=== PATIENT | male | born 1960 | race Caucasian/White ===

== ENCOUNTER → 2023-07-02 12:00 | Outpatient (REF) | payer OTHER, SELFPAY ==
--- NOTE | 2023-06-29 12:46 | PN.DIAED02 ---
Referral
DSME Class Series Code: [id number]
Referred For: Diabetes Self-Management Training, Medical Nutrition Therapy, Self-Blood Glucose Monitoring, Long-Term Complication Instruction, Accute Complication Instruction, Medication management, Insulin Instruction, Disease Management
PHI Release Authorization Form Signed: Yes
Patient Problems:
Current Active Problems
Problem Status Onset
Type 2 diabetes mellitus with hyperglycemia ~06/11/19
Demographic
(1) Type 2 diabetes mellitus with hyperglycemia
Status: Acute Code(s): E11.65 - Type 2 diabetes mellitus with hyperglycemia
Patient's primary language-: [place]
Education: Advanced college degree
Occupation: Retired
- Social
Primary Support Person: Self
Primary Care Takers: Self & spouse
Living Arrangements: Self & spouse
- Learning Methods
Preferred Method: Lecture/audio
Barriers to Learning: None
Glycemic Control
- Blood Glucose Monitoring Assessment
Blood glucose monitoring at home: Yes
Monitor Brands: [employer] (Contour Next EZ)
Frequency: 2x per day
Patient uses Alternate Site Testing: No
Patient instructed on Use and Limitation: No
- Blood Glucose Monitoring Results
Source: self-report
- Hemoglobin A1c
Date: 01/05/23
A1C Percentage (%): 10.7
Medical History of Diabetes
Family Diabetes History: Child(olga) (Son with T1DM), Mother (T2DM)
Previous Diabetes Education: No
Previous visit with Dietitian: No
Complications/Comorbidity/Specialist: Diabetic Neuropathy, Hypertension, Hyperlipidemia, Retinopathy (Diabetic )
Current Home Medication
- Insulin Management
Patient adjusts own insulin dosages: No
Patient has access to glucagon: Yes
- Insulin Types
Lantus
Insulin Injection Site: Abdomen
Administration Type: SoloSTAR
Needle Length: ' (4 mm)
Needle Gauge: 32
Connection Type: Screw on
Novolog
Administration Type: FlexPen
Needle Length: 5/32' (4 mm)
Needle Gauge: 32
Connection Type: Screw on
Measures
- Anthropometrics
Height: 5 ft 10 in
Actual Weight: 114.305 kg
- Blood Pressure / Pulse
Blood pressure: 159/66
Pulse: 75
- Diabetes Management
Medical Management for Diabetes: Complete physical exam (03/11/2023), Dental exam (06/03/2023), Dilated eye exam (05/08/2023), Flu Vaccination (03/2023), Pneumonia vaccination (01/2022)
Self-Care
- Tobacco Usage
Do you now, or have you ever smoked?: Never smoked
- Alcohol & Drugs Usage
Amount/day: < 1 drink per day
Uses Recreational Drugs: No
- Meals & Dining
Meals & Dining: Patient skips meals: Yes, Food Intolerance / Allergy: No, Cultural / Episcopal Dietary Needs: No
Primary Food Installation Coordinator: Self & Spouse
Primary Supervisor Gelatin Plant: Self & Spouse
Dining Out Frequency: 1-3x per week
- Physical Activity
Physical Limitation: No
Patient participates in physical Activity: Yes
Activity Types: walking
Duration: 31-40 minutes
Frequency: 3-5x per week
Intensity: Easy
- Self Foot-Care
Foot Problems: Neuropathy
Performs Self Foot-Exam: Yes
Frequency: Daily
- Patient-Self Assessment
Diabetes Knowledge: Good
Feelings About Diabetes: Acceptance
General Health: Good
Importance of Health: Somewhat
Stress Level: Low
Diabetes Interferes With:: Sexual relations, Finances
Barriers to Diabetes Management: Nothing
Depression Survey Score: 0
- Diabetes Identification
Carries Diabetes Identification: No
Diabetes Identification Information Provided: No
Care Plan
- Education Needs
Patient Education Needs: Diabetes disease process, Chronic complications, Acute complications, Medication, Monitoring, Physical activity, Psychosocial Adjustment, Nutritional management, Goal setting & problem solving
Recommended Diabetes Training Program based on assessment: Outpatient Diabetes Education Program
- Plan of Care
Plan of Care:
Met with Gualberto today for registration and initiation of Diabetes Self management Education. Pt was recommended by his PCP due to recent increase in his A1C to 10.7%. Patient states that he has a Contour Next Ez and is monitoring his blood sugars
2-3x a day, fasting, before lunch and at bedtime. He states that his FBG has been 150 to 180 and >200 at bedtime. We reviewed the testing pattern and set a schedule for him to monitor blood sugars 3x/day- Fasting, Before dinner and 2 hrs after
dinner.
He reports that he is taking Janumet 100/1000mg daily, Glimepiride 4mg daily, Lantus 55 units @ HS and was recently started on NovoLog 10 units before breakfast due to uncontrolled blood sugars. He states that he sometimes will take the NovoLog
after breakfast, he has also taken it after dinner some days and has noticed a FBG that is within range the next morning. Discussed mechanism of action of long and short acting insulin and instructed pt to consistently take his NovoLog before eating
and NOT eating. He was provided with a log sheet and instructed to keep a log of his blood sugars for review upon start of class on Sunday.
Pt was counseled with emphasis on the importance of Physical activity, need to adhere to a healthy life style including healthy eating, taking her medications and monitoring blood glucose. We spent a good amount of time discussing dietary choices.
Goals for physical activity were established; pt will increase his duration of exercise time to 45 minutes, 5 days a week.
--- NOTE | 2023-06-29 13:40 | PN.DIAED04 ---
Education Record
- Education Record
Class Attended: Other (Pre-Registration for DSME Classes)
DSME Class Series Code: [id number]
Instructor: Nurse Practitioner
Class Length (mins): 60
Pre-Program Knowledge: Needs review / Assistance
Pre-Test Score (%): 73
Goals
- Goal 1
Being Active: Exercise 30 minutes-5 times per week
Goals To Be Evaluated: Exercise 30 mins-5x/week
- Goal 2
Healthy Eating: Make better food choices, Follow meal plan
Goals To Be Evaluated: Make better food choices. Follow meal plan
- Goal 3
Monitoring: Follow monitoring schedule, Monitor more often
Goals To Be Evaluated: Follow monitoring times. Monitor more often
--- NOTE | 2023-07-02 15:38 | PN.DIAED04 ---
Education Record
- Education Record
Class Attended: Class 1
DSME Class Series Code: [id number]
Instructor: Nurse Practitioner (JORDANA Palma)
Class Length (mins): 120
Post-Class 1 Test Score (%): 94
--- NOTE | 2023-07-02 15:39 | PN.DIAED14 ---
This is to notify you that your patient with diabetes, DEJAH LESTER ( 1960), has enrolled in our diabetes self-management classes that are being held at [facility].
These classes will include an introduction to diabetes, diet, medication, exercise and prevention of complications. At the end of our class series, you will receive a report of your patient's participation and progress for your records.
Please contact me at the [facility], , if there is any particular information regarding your patient that might be helpful to me.
Sincerely,
--- NOTE | 2023-07-04 16:28 | PN.DIAED06 ---
Meal Plans - Regular
- Meal Plan
Diabetic Meal Plan Name: 2000 calories
Breakfast - Total Carbohydrate (grams): 45
Breakfast - Starch Carbohydrate: 0
Breakfast - Fruit Carbohydrate: 0
Breakfast - Milk Carbohydrate: 0
Breakfast - Nonstarchy Vegetables: Yes
Breakfast - Meat/Protein: 1
Breakfast - Fat: 2
Morning Snack - Total Carbohydrate (grams): 30
Morning Snack - Starch Carbohydrate: 0
Morning Snack - Fruit Carbohydrate: 0
Morning Snack - Milk Carbohydrate: 0
Morning Snack - Nonstarchy Vegetables: Yes
Morning Snack - Meat/Protein: 0.5
Morning Snack - Fat: 0
Lunch - Total Carbohydrate (grams): 45
Lunch - Starch Carbohydrate: 0
Lunch - Fruit Carbohydrate: 0
Lunch - Milk Carbohydrate: 0
Lunch - Nonstarchy Vegetables: Yes
Lunch - Meat/Protein: 3
Lunch - Fat: 1
Afternoon Snack - Total Carbohydrate (grams): 30
Afternoon Snack - Starch Carbohydrate: 0
Afternoon Snack - Fruit Carbohydrate: 0
Afternoon Snack - Milk Carbohydrate: 0
Afternoon Snack - Nonstarchy Vegetables: Yes
Afternoon Snack - Meat/Protein: 0.5
Afternoon Snack - Fat: 0
Dinner - Total Carbohydrate (grams): 45
Dinner - Starch Carbohydrate: 0
Dinner - Fruit Carbohydrate: 0
Dinner - Milk Carbohydrate: 0
Dinner - Nonstarchy Vegetables: Yes
Dinner - Meat/Protein: 4
Dinner - Fat: 2
Evening Snack - Total Carbohydrate (grams): 15
Evening Snack - Starch Carbohydrate: 0
Evening Snack - Fruit Carbohydrate: 0
Evening Snack - Milk Carbohydrate: 0
Evening Snack - Nonstarchy Vegetables: Yes
Evening Snack - Meat/Protein: 0
Evening Snack - Fat: 0
== END ==
LOC: DES 12:00
PROVIDERS: ATTENDING PHYSICIAN Family Medicine
DX: E11.65 Type 2 diabetes mellitus with hyperglycemia (principal)
CPT/HCPCS: 99078

== ENCOUNTER → 2023-07-09 12:00 | Outpatient (REF) | payer OTHER, SELFPAY ==
--- NOTE | 2023-07-09 15:21 | PN.DIAED04 ---
Education Record
- Education Record
Class Attended: Class 2
DSME Class Series Code: [id number]
Instructor: Registered Dietitian (Mojgan Gupta, RD, LDN, CDE)
Class Length (mins): 120
== END ==
LOC: DES 12:00
PROVIDERS: ATTENDING PHYSICIAN Family Medicine
DX: E11.65 Type 2 diabetes mellitus with hyperglycemia (principal)
CPT/HCPCS: 99078

== ENCOUNTER → 2023-07-16 12:00 | Outpatient (REF) | payer OTHER, SELFPAY ==
--- NOTE | 2023-07-23 10:48 | PN.DIAED04 ---
Education Record
- Education Record
Class Attended: Class 3
DSME Class Series Code: [id number]
Instructor: Registered Dietitian (Mojgan Gupta, RD, LDN, CDE)
Class Length (mins): 120
Post-Class 2 & 3 Test Score (%): 88
== END ==
LOC: DES 12:00
PROVIDERS: ATTENDING PHYSICIAN Family Medicine
DX: E11.65 Type 2 diabetes mellitus with hyperglycemia (principal)
CPT/HCPCS: 99078

== ENCOUNTER → 2023-07-23 12:00 | Outpatient (REF) | payer OTHER, SELFPAY ==
--- NOTE | 2023-07-24 13:04 | PN.DIAED04 ---
Education Record
- Education Record
Class Attended: Class 3
DSME Class Series Code: [id number]
Instructor: Nurse Practitioner (JORDANA Palma)
Class Length (mins): 120
Post-Class 4 Test Score (%): 87
== END ==
LOC: DES 12:00
PROVIDERS: ATTENDING PHYSICIAN Family Medicine
DX: E11.65 Type 2 diabetes mellitus with hyperglycemia (principal)
CPT/HCPCS: 99078

== ENCOUNTER → 2023-07-30 12:00 | Outpatient (REF) | payer OTHER, SELFPAY ==
--- NOTE | 2023-07-31 15:00 | PN.DIAED16 ---
This is to notify you that your patient with diabetes, DEJAH LESTER ( 1960), has attended the entire series of Diabetes Self-Management Education Classes.
Class 1 (120 minutes): Diabetes Overview - monitoring, stress/psychosocial adjustment, support, goal setting
Class 2 (120 minutes): Meal Planning - serving sizes, menu plans
Class 3 (120 minutes): Introduction to Carbohydrate Counting, Analyzing Food Labels
Class 4 (120 minutes): Medication, Exercise and Activity
Class 5 (120 minutes): Sick Day Management, Strategies to Reduce Complications, Problem Solving, Resources
The following behavioral goals were identified:
Exercise 30 mins-5x/week
Make better food choices
Follow meal plan
Follow monitoring times
Monitor more often
A follow-up call will be made within three to six months to evaluate attainment of these goals and to check post-program Hemoglobin A1c and overall progress. All class participants are encouraged to contact me if I can be any further assistance in
learning how to manage their diabetes.
Sincerely,
--- NOTE | 2023-08-02 09:56 | PN.DIAED04 ---
Education Record
- Education Record
Class Attended: Class 5
DSME Class Series Code: [id number]
Instructor: Nurse Practitioner (JORDANA Palma)
Class Curriculum:
Outpatient Diabetes Education Program:
Class 5 (120 minutes)
Prevent, detect, and treat acute complications
Prevent, detect, and treat chronic complications through risk reduction
Develop personal strategies to address psychosocial issues and concerns
Development of diabetes self-management support plan
Letter to physician with DSMS plan attached sent
Class Length (mins): 120
Post-Program Knowledge: Demonstrates competency
Post-Test Score (%): 80
Post-Program Assessment
- Post-Program Assessment
Actual Weight: 251 lb
Blood pressure: 159/82
Post-Program Depression Survey Score: 0
Reviewing Previous Goals?: Yes
Pre-Program Depression Survey Score: 0
- Goals 1 Evaluation
Goals To Be Evaluated: Exercise 30 mins-5x/week
- Goals 2 Evaluation
Goals To Be Evaluated: Make better food choices. Follow meal plan
- Goals 3 Evaluation
Goals To Be Evaluated: Follow monitoring times. Monitor more often
== END ==
LOC: DES 12:00
PROVIDERS: ATTENDING PHYSICIAN Family Medicine
DX: E11.65 Type 2 diabetes mellitus with hyperglycemia (principal)
CPT/HCPCS: 99078

== ENCOUNTER → 2024-10-06 11:37 | Outpatient (REF) | payer OTHER, SELFPAY | LOC: RAD 11:37 | PROVIDERS: ATTENDING PHYSICIAN Family Medicine | DX: R05.3 Chronic cough (principal) | CPT/HCPCS: 71046 ==

== ENCOUNTER → 2024-10-30 09:35 | Outpatient (REF) | payer OTHER, SELFPAY ==
[2024-10-30 11:01] LABS: % Basophils 0.4 % (0-2); % Eosinophils 0.6 % (0-6); % Immature Granulocytes 0.4 % (0-0.5); % Lymphocytes 23.3 % (20.5-51.1); % Monocytes 5.4 % (1.7-9.3); % Neutrophils 69.9 % (42.2-75.2); Absolute Lymphocytes 1.7 10^3/uL (1.2-3.4); Absolute Monocytes 0.4 10^3/uL (0.1-0.6); Absolute Neutrophils 5.1 10^3/uL (1.4-6.5); Hematocrit 45.9 % (39.0-52.0); Hemoglobin 15.1 g/dL (13.0-18.0); Mean Corp Hgb Conc. 32.9 g/dL (33.0-37.0); Mean Corpuscular Hgb 30.7 pg (27.0-31.0); Mean Corpuscular Volume 93.3 fL (80.0-94.0); Mean Platelet Volume 10.7 fL (7.4-10.4); Nucleated Red Blood Cells % 0 % (-); Platelet Count 213 10^3/uL (130-400); Red Blood Cell Count 4.92 10^6/uL (4.70-6.10); White Blood Cell Count 7.2 10^3/uL (4.8-10.8)
[2024-10-30 11:39] LABS: Blood Urea Nitrogen 24 mg/dl (9-20); Calcium 9.4 mg/dl (8.4-10.2); Carbon Dioxide 22 mmol/L (22-30); Chloride 111 mmol/L (98-107); Glucose 163 mg/dl (70-99); Potassium 4.2 mmol/L (3.5-5.1); Sodium 140 mmol/L (135-145); eGFR > 60.00
== END ==
LOC: REG 09:35
PROVIDERS: ATTENDING PHYSICIAN Orthopaedic Surgery
DX: Z01.818 Encounter for other preprocedural examination (principal)
CPT/HCPCS: 36415; 80048; 85025; 93005

== ENCOUNTER 2024-12-02 08:56 | Outpatient (RCR) | payer OTHER, SELFPAY | END 2024-12-02 23:59 | disposition home or self-care (01) | LOC: RPT 08:56 | PROVIDERS: ATTENDING PHYSICIAN Orthopaedic Surgery; FAMILY PHYSICIAN Family Medicine | DX: Z47.1 Aftercare following joint replacement surgery (principal); Z96.652 Presence of left artificial knee joint; M17.12 Unilateral primary osteoarthritis, left knee | CPT/HCPCS: 97010; 97110; 97140; 97161; 97530; 97535 ==

== ENCOUNTER 2025-01-02 06:25 | Outpatient (RCR) | payer OTHER, SELFPAY | END 2025-01-02 23:59 | disposition home or self-care (01) | LOC: RPT 06:25 | PROVIDERS: ATTENDING PHYSICIAN Orthopaedic Surgery; FAMILY PHYSICIAN Family Medicine | DX: M17.12 Unilateral primary osteoarthritis, left knee (principal); Z47.1 Aftercare following joint replacement surgery (principal); Z96.652 Presence of left artificial knee joint | CPT/HCPCS: 97010; 97110; 97116; 97140; 97530; 97535 ==

== ENCOUNTER 2025-01-30 06:12 | Outpatient (RCR) | payer OTHER, SELFPAY | END 2025-01-30 23:59 | disposition home or self-care (01) | LOC: RPT 06:12 | PROVIDERS: ATTENDING PHYSICIAN Orthopaedic Surgery; FAMILY PHYSICIAN Family Medicine | DX: Z47.1 Aftercare following joint replacement surgery (principal); M17.12 Unilateral primary osteoarthritis, left knee (principal); Z96.652 Presence of left artificial knee joint; R26.89 Other abnormalities of gait and mobility; Z73.6 Limitation of activities due to disability; M25.562 Pain in left knee; M62.81 Muscle weakness (generalized) | CPT/HCPCS: 97110; 97140; 97530; 97535 ==

== ENCOUNTER 2025-02-24 06:09 | Outpatient (RCR) | payer OTHER, SELFPAY | END 2025-02-25 06:53 | disposition home or self-care (01) | LOC: RPT 06:09 | PROVIDERS: ATTENDING PHYSICIAN Orthopaedic Surgery; FAMILY PHYSICIAN Family Medicine | DX: Z47.1 Aftercare following joint replacement surgery (principal); M17.12 Unilateral primary osteoarthritis, left knee; R26.89 Other abnormalities of gait and mobility; Z73.6 Limitation of activities due to disability; M25.562 Pain in left knee; M62.81 Muscle weakness (generalized); Z96.652 Presence of left artificial knee joint | CPT/HCPCS: 97110; 97140; 97530; 97535 ==